=== PATIENT | female | born 1990 | race Caucasian/White ===

== ENCOUNTER 2021-08-31 17:16 | Outpatient (CLI) | payer OTHER ==
[~2021-08-31 17:16] MED LIST: BENTYL 20MG TAB20 MG PO; CHILDREN'S100 MG/52 PO; COLACE SOL100 MG/10 PO; KEFLEX CAP 500500 MG PO; LORTAB 5-325 M1 EACH PO; PRENATAL VITAM1 EAC8 PO; ZOFRAN ODT 4 MG4 MG SL
== END 2021-08-31 19:19 | disposition home or self-care (01) ==
LOC: GENOP 17:16
DX: O47.03 False labor before 37 completed weeks of gestation, third trimester (principal); Z3A.30 30 weeks gestation of pregnancy
CPT/HCPCS: 59025; 81001

== ENCOUNTER → 2021-10-21 | Outpatient (CLI) | payer OTHER | LOC: GENOP 00:20 | DX: O99.891 Other specified diseases and conditions complicating pregnancy (principal); M54.50 Low back pain, unspecified; R10.9 Unspecified abdominal pain; N89.8 Other specified noninflammatory disorders of vagina; Z3A.37 37 weeks gestation of pregnancy | CPT/HCPCS: 81001; 83518; G0463 ==

== ENCOUNTER 2021-11-04 16:46 | Observation (INO) | payer OTHER ==
[2021-11-04 19:33] LABS: RED BLOOD COUNT 4.52 M/UL (4.00-5.10); WHITE BLOOD COUNT 8.2 K/UL (4.5-11.0)
[2021-11-06] MEDS ORDERED: IBUPROFEN600 MG PO (12:48)
[2021-11-06] MEDS ORDERED: HYDROCODON-ACE1 EAC6 PO (12:48)
[2021-11-06] MEDS ORDERED: COLACE 100MG C100 MG PO (12:48)
== END 2021-11-05 10:57 | disposition home or self-care (01) ==
LOC: GENOP 16:46 → OB 17:01
PROVIDERS: ADMIT Obstetrics & Gynecology
DX: O34.219 Maternal care for unspecified type scar from previous cesarean delivery (principal); O09.213 Supervision of pregnancy with history of pre-term labor, third trimester; O21.2 Late vomiting of pregnancy; O26.893 Other specified pregnancy related conditions, third trimester; L29.9 Pruritus, unspecified; O99.891 Other specified diseases and conditions complicating pregnancy; R51.9 Headache, unspecified; R12 Heartburn; Z3A.39 39 weeks gestation of pregnancy; Z53.20 Procedure and treatment not carried out because of patient's decision for unspecified reasons
CPT/HCPCS: 81001; 85025; G0378

== ENCOUNTER 2021-11-06 08:02 | Inpatient (IN) | payer OTHER ==
[~2021-11-06] VITALS: Ht 160 cm; Wt 88.0 kg
[2021-11-06] MEDS ORDERED: IBUPROFEN600 MG PO (12:48)
[2021-11-06] MEDS ORDERED: HYDROCODON-ACE1 EAC6 PO (12:48)
[2021-11-06] MEDS ORDERED: COLACE 100MG C100 MG PO (12:48)
[2021-11-07 07:31] LABS: HEMOGLOBIN 9.9 gm/dl (12.3-15.3)
== END 2021-11-07 12:38 | disposition home or self-care (01) | DRG 788 ==
LOC: OB 08:02
PROVIDERS: ADMIT Obstetrics & Gynecology
PROC: 4A1HXCZ Monitoring of Products of Conception, Cardiac Rate, External Approach (ICD-10-PCS; 2021-11-06)
PROC: 10D00Z1 Extraction of Products of Conception, Low, Open Approach (ICD-10-PCS; principal; 2021-11-06 12:09)
DX: O34.211 Maternal care for low transverse scar from previous cesarean delivery (principal); O16.5 Unspecified maternal hypertension, complicating the puerperium; Z3A.39 39 weeks gestation of pregnancy; Z37.0 Single live birth; Z20.822 Contact with and (suspected) exposure to COVID-19
CPT/HCPCS: 36415; 82800; 85014; 85018; 86900; 86901; C9113; J0690; J1885; J2274; J2370; J2405; J2590; J3010; J7120; U0002